=== PATIENT | female | born 1980 | race Two or more races ===

== ENCOUNTER 2025-02-27 19:54 | Emergency (ER) | payer MEDICAID, SELFPAY ==
[2025-02-27 19:56] VITALS: BMI 27.6
[2025-02-27 20:14] VITALS: BP 179/102; PULSE 85; RESP 18; TEMP 36.9; O2SAT 97
--- NOTE | 2025-02-27 20:21 | EDNOTE_ITS ---
ED Wound/Laceration-RME/HPI General Chief Complaint: Hand/Wrist Problems Stated Complaint: LACERATION TO LEFT HAND Time Seen by Provider: 02/27/25 20:02 Arrival date/time: 02/27/25 19:54 44F with history of HTN presents to ED with L hand lac after she accidentally cut herself against some aluminum sheet. Patient has not had a tetanus shot in the past 5 years. Limitations: no limitations Related Data Previous Rx's ?Medication ?Instructions ?Recorded nystatin 100,000 unit/gram topical 1 applic topical TI D apply to 09/19/20 cream foort rash #60 grams albuterol sulfate 90 mcg/actuation 2 puff inhalation Q ID PRN 01/26/21 aerosol inhaler (ProAir HFA) shortness of breath or wh eezing #8.5 grams inhalational spacing device (Space #1 ea 01/26/21 Chamber) ibuprofen 800 mg tablet 800 mg PO TID PRN pain #30 t abs 06/28/23 ibuprofen 800 mg tablet (IBU) 800 mg PO Q8H #20 tabs 1 Allergies Allergy/AdvReac Type Severity Reaction Status Date / Time No Known Allergies Allergy Verified 02/27/25 19:55 Review of Systems Review of Systems Systems Reviewed: All systems reviewed, normal except as documented Constitutional Constitutional: Reports system reviewed and no additional complaints, except as documented, Denies fever(s) and Denies headache(s) ENT Ears, Nose, Mouth, and Throat: Denies disequilibrium and Denies headache(s) Cardiovascular Cardiovascular: Reports system reviewed and no additional complaints, except as documented, Denies chest pain and Denies dyspnea Respiratory Respiratory: Reports system reviewed and no additional complaints, except as documented, Denies cough and Denies dyspnea Gastrointestinal Gastrointestinal: Reports system reviewed and no additional complaints, except as documented, Denies abdominal pain, Denies nausea and Denies vomiting Integumentary/Breasts Skin/Breast: Reports as per HPI and Reports skin pain Neurologic Neurologic: Reports system reviewed and no additional complaints, except as documented, Denies confusion, Denies disequilibrium and Denies headache(s) Psychiatric Psychiatric: Denies confusion Past Medical History Past Medical History CARDIAC: Positive Cardiac Disorders (hx heart palpitations) PSYCHO/SOCIAL: Positive Anxiety Family History FAMILY HISTORY: Positive Family Cardiac Disorders (Brother of heart attack at 26 yo. Father has hypertension.) Social History SMOKING STATUS: Never smoker SUBSTANCE USE: methamphetamine ED Exam General Limitations: Present no limitations General appearance: Present alert and in no apparent distress Head Head exam: Present atraumatic Eye Eye exam: Present normal appearance, PERRL and EOMI ENT ENT exam: Present normal exam, normal oropharynx and mucous membranes moist Neck Neck exam: Present normal inspection, full ROM and trachea midline Chest Chest inspection: Present normal inspection and symmetric chest wall rise Respiratory Respiratory exam: Present normal lung sounds bilaterally Cardiovascular Cardiovascular exam: Present regular rate, normal rhythm and normal heart sounds Abdominal Exam Abdominal exam: Present soft and normal bowel sounds Extremities Exam Extremities exam: Present full ROM Expanded Upper Extremity Exam Hand exam: Present full ROM and laceration (2 cm lac L hand) Back Exam Back exam: Present normal inspection and full ROM Neurological Exam Neurological exam: Present alert, oriented X3 and CN II-XII intact Psychiatric Psychiatric exam: Present normal affect and normal mood Skin Skin exam: Present warm, dry, intact and normal color Course Quality Measures none Orders Category Date Time Status Set Up Suture Tray STAT Care 02/27/25 20:19 Active Wound Care NOW Care 02/27/25 20:19 Active TET,DIP/PERT AC (Adult)-Tdap [Boostrix Adult (Tdap) Med 02/27/25 20:19 Discontinued Vacc] 0.5 ml IMI .ONCE ONE Vital Signs Vital signs: Vital Signs Temperature 98.5 F 02/27/25 20:14 Pulse Rate 85 02/27/25 20:14 Respiratory Rate 18 02/27/25 20:14 Blood Pressure 179/102 H 02/27/25 20:14 Pulse Oximetry (%) 97 02/27/25 20:14 Oxygen Delivery Method Room Air 02/27/25 20:14 O2 at 97% on RA and WNLs Wound / Laceration MDM Narrative MDM Narrative:: 44F with history of HTN presents to ED with L hand lac after she accidentally cut herself against some aluminum sheet. Patient has not had a tetanus shot in the past 5 years. Physical exam reveals 2 cm lac on L hand near 4th knuckle. ROM intact. Patient is afebrile, calm, and alert. Wound cleaned/irrigated and closed with 3 stitches. Given professor of counseling to have them removed in about 10-14 days. Tdap given. Patient data External records reviewed:: [facility] previous records Clinical information provided by:: patient Social determinants that could affect healthcare access:: none Patient has the following chronic illnesses:: HTN How is presenting disease/condition affected by chronic disease/condition?: uneffected by Evaluation data The following diagnostics were reviewed and interpreted by me:: other (specify) (none) Lab and/or radiology exams considered but not ordered:: not ordered Interpretation Summary: n/a Medications / Prescriptions Medications or Prescriptions considered but not ordered:: ordered Medication administrations:: Medication Administration History Discontinued Medications Diphtheria/Tetanus/Acell Pertussis (Diphth,Pertuss(Acell),Tet Vac 0.5 Ml Syr- Adult) 0.5 ml IMi .ONCE ONE Stop: 02/27/25 20:20 Last Admin: 02/27/25 20:37 Dose: 0.5 ml Documented By: OA above Consultations Consultation(s) initiated? (list below): No Diagnosis Wound Differential Diagnosis: laceration, abrasion and avulsion of skin Most likely diagnosis given after review of the tests above:: laceration Admission Indicated Admission indicated?: not indicated Admission Request Was there a request for admission?: No Disposition Plan Disposition Plan: Discharge Discharge Attestation Discharge Attestation: The patient and all family members were given an opportunity to ask questions and understood the discharge instructions. Discharge instructions specifically effects, indications for sooner follow up or return to the emergency department, and the expected course of current diagnosis. Patient condition: Stable Discharge Plan Plan Patient Disposition: HOME (Self Care) Discharge Disposition comment: Stable Prescriptions/Referrals Prescriptions/Med Rec: No Action nystatin 100,000 unit/gram cream 1 applic topical TID Qty: 60 0RF albuterol sulfate [ProAir HFA] 90 mcg/actuation HFA aerosol inhaler 2 puff inhalation QID PRN (Reason: shortness of breath or wheezing) Qty: 8.5 0RF (DME) Space Chamber Spacer See Rx Instructions .ROUTE .MEDSUPPLY Qty: 1 0RF Rx Instructions: As directed ibuprofen 800 mg tablet 800 mg PO TID PRN (Reason: pain) Qty: 30 0RF ibuprofen [IBU] 800 mg tablet 800 mg PO Q8H Qty: 20 0RF Problem List Clinical Impression: Laceration Patient/Caregiver Discharge Instructions Education Materials: ED Laceration, Hand: All Closures Additional Instructions: Please follow-up with PCP within 24-48 hours and return immediately if symptoms worsen. Have stitches removed in about 10-14 days. Print Language: [place]ize[place] Stand Alone Forms: Patient Portal Info Letter PA/DIE CASTING MACHINE SETTER Supervising Physician AILYN/PIERCE Supervising Physician: Dr. Sherman
[2025-02-27] MEDS: DIPHTH,PERTUSS(ACELL),TET VAC 0.5 ML SYR- ADULT IMi (20:37)
== END 2025-02-27 20:52 | disposition home or self-care (01) ==
LOC: SERX 20:57
PROVIDERS: Emergency Provider Emergency Medicine
DX: S61.412A Laceration without foreign body of left hand, initial encounter (principal); W26.2XXA Contact with edge of stiff paper, initial encounter; Z23 Encounter for immunization
CPT/HCPCS: 12001; 90471; 90715; 99283